=== PATIENT | female | born 1995 | race Caucasian/White ===

== ENCOUNTER → 2018-02-15 | Outpatient (CLI) | payer OTHER | LOC: MC.RAD 13:00 → EDBD 13:07 → MC.RAD 13:07 | DX: N63.20 Unspecified lump in the left breast, unspecified quadrant (principal) ==

== ENCOUNTER → 2018-08-15 | Outpatient (CLI) | payer OTHER | LOC: MC.RAD 07:30 | DX: N63.23 Unspecified lump in the left breast, lower outer quadrant (principal); N63.10 Unspecified lump in the right breast, unspecified quadrant ==

== ENCOUNTER → 2019-08-22 | Outpatient (CLI) | payer BC | LOC: MC.RAD 07:00 | DX: N63.20 Unspecified lump in the left breast, unspecified quadrant (principal) ==